=== PATIENT | female | born 1995 | race American Indian/Alaskan Native ===

== ENCOUNTER 2020-09-17 14:27 | Emergency (ER) | payer SELFPAY ==
[2020-09-17 15:26] VITALS: BP 147/89
--- NOTE | 2020-09-17 15:31 | Emergency Department Report ---
- General Chief Complaint: Upper Respiratory Infection Stated Complaint: CHEST PAIN, COUGH, FEELING FAINT, FEVER Time Seen by Provider: 09/17/20 15:27 Source: patient Mode of arrival: Ambulatory Limitations: No Limitations - History of Present Illness Initial Comments: Patient is a 24-year-old female presents emergency room complaints of URI symptoms that began 4 days ago. She has associated cough, chest congestion, chest discomfort with frequent coughing, diarrhea. She states that her children were sick at home with similar symptoms and she gave them amoxicillin and predni sone. She states that she has had a subjective fever. She states that she has been taking Tylenol sinus with some relief. She denies any vomiting, shortness of breath, sore throat, ear pain, abdominal pain, urinary symptoms. Patient denies any past medical history. She states that she has an allergy to amoxicillin and codeine. Patient denies any possibility of and states that she will sign form for x-ray. - Related Data Previous Rx's Medication Instructions Recorded Last Taken Type Albuterol Sulfate [Proventil Hfa] 1 inhalation IH Q4HR PRN #1 09/17/20 Unknown Rx hfa.aer.ad Azithromycin [Zithromax TAB] 250 mg PO QDAY 5 Days #6 tablet 09/17/20 Unknown Rx Prednisone [predniSONE 10 mg 10 mg PO .TAPER #1 tab.ds.pk 09/17/20 Unknown Rx (6-Day Pack, 21 Tabs)] guaiFENesin ER [Mucinex ER] 600 mg PO BID #14 tablet.er 09/17/20 Unknown Rx Allergies Allergy/AdvReac Type Severity Reaction Status Date / Time amoxicillin AdvReac Unknown Verified 09/17/20 15:26 codeine AdvReac Unknown Verified 09/17/20 15:26 ED Review of Systems ROS: Stated complaint: CHEST PAIN, COUGH, FEELING FAINT, FEVER Other details as noted in HPI Comment: All other systems reviewed and negative ED Past Medical Hx - Past Medical History Previous Medical History?: No - Social History Smoking Status: Current Every Day Smoker Substance Use Type: None - Medications Home Medications: Home Medications Medication Instructions Recorded Confirmed Last Taken Type Albuterol Sulfate [Proventil Hfa] 1 inhalation IH Q4HR PRN #1 09/17/20 Unknown Rx hfa.aer.ad Azithromycin [Zithromax TAB] 250 mg PO QDAY 5 Days #6 tablet 09/17/20 Unknown Rx Prednisone [predniSONE 10 mg 10 mg PO .TAPER #1 tab.ds.pk 09/17/20 Unknown Rx (6-Day Pack, 21 Tabs)] guaiFENesin ER [Mucinex ER] 600 mg PO BID #14 tablet.er 09/17/20 Unknown Rx ED Physical Exam - General Limitations: No Limitations General appearance: alert, in no apparent distress - Head Head exam: Present: atraumatic, normocephalic - Eye Eye exam: Present: normal appearance - ENT ENT exam: Present: mucous membranes moist - Respiratory Respiratory exam: Present: normal lung sounds bilaterally, wheezes (mild wheezing bilaterally). Absent: respiratory distress, rales, rhonchi, stridor, chest wall tenderness, accessory muscle use, decreased breath sounds, prolonged expiratory - Cardiovascular Cardiovascular Exam: Present: regular rate, normal rhythm, normal heart sounds. Absent: systolic murmur, diastolic murmur, rubs, gallop - Neurological Exam Neurological exam: Present: alert, oriented X3 - Psychiatric Psychiatric exam: Present: normal affect, normal mood - Skin Skin exam: Present: warm, dry, intact ED Course Vital Signs 09/17/20 15:23 Temperature 98.4 F Pulse Rate 60 Respiratory 18 Rate Blood Pressure 147/89 O2 Sat by Pulse 100 Oximetry ED Medical Decision Making - Radiology Data Radiology results: report reviewed Ordering Physician: JENNIFER EUCEDA Date of Service: 09/17/20 Procedure(s): XR chest routine 2V Accession Number(s): [id number] cc: JENNIFER EUCEDA Fluoro Time In Minutes: CHEST 2 VIEWS INDICATION / CLINICAL INFORMATION: fever, cough, wheezing. COMPARISON: None available. FINDINGS: SUPPORT DEVICES: None. HEART / MEDIASTINUM: No significant abnormality. LUNGS / PLEURA: No significant pulmonary or pleural abnormality. No pneumothorax. ADDITIONAL FINDINGS: No significant additional findings. IMPRESSION: 1. No acute findings. Signer Name: Neto Draper MD Signed: 09/17/2020 4:00 PM Workstation Name: [id number] Transcribed By: Dictated By: NETO DRAPER III Electronically Authenticated By: NETO DRAPER III Signed Date/Time: 09/17/20 1600 DD/ 1559 TD/TT: - Medical Decision Making Patient is a 24-year-old female presents emergency room complaints of URI symptoms that began 4 days ago. She has associated cough, chest congestion, chest discomfort with frequent coughing, diarrhea. She states that her children were sick at home with similar symptoms and she gave them amoxicillin and prednisone. She states that she has had a subjective fever. She states that she has been taking Tylenol sinus with some relief. She denies any vomiting, shortness of breath, sore throat, ear pain, abdominal pain, urinary symptoms. Patient denies any past medical history. She states that she has an allergy to amoxicillin and codeine. Patient denies any possibility of and states that she will sign form for x-ray. VSS. on exam: mild wheezing bilaterally, no rales, no rhonchi, no respiratory distress, no accessory muscle use. CXR: 1. No acute findings. symptoms most consistent with acute bronchitis. pt is presenting during COVID 19 pandemic, discussed COVID 19 with pt, discussed strict return precautions, discussed outpatient testing. advised pt please take medication as prescribed. Please increase your fluid intake over the next several days. May take Tylenol as needed for fever or body aches. Follow-up with a primary care doctor for reexamination. Return to emergency room immediately for any new or worsening symptoms including but not limited to difficulty breathing, shortness of breath, severe chest pain, unable to tolerate by mouth intake, etc. Please self quarantine for 10 days from the onset of your symptoms. Please do not go out in public. If you are around others at home please wear a mask. If you need to cough or sneeze please do so in a napkin and immediately throw it away and immediately wash your hands. Wash your hands frequently. Wipe everything down. Recommend for you to get COVID-19 testing, may have this done at primary care doctor, health department, [facility],.etc. Critical care attestation.: If time is entered above; I have spent that time in minutes in the direct care of this critically ill patient, excluding procedure time. ED Disposition Clinical Impression: Acute bronchitis Qualifiers: Bronchitis organism: unspecified organism Qualified Code(s): J20.9 - Acute bronchitis, unspecified Disposition: DC-01 TO HOME OR SELFCARE Is pt being admited?: No Does the pt Need Aspirin: No Condition: Stable Instructions: Acute Bronchitis, Adult, [id number]-[id number], Acute Bronchitis (ED) Additional Instructions: Please take medication as prescribed. Please increase your fluid intake over the next several days. May take Tylenol as needed for fever or body aches. Follow-up with a primary care doctor for reexamination. Return to emergency r oom immediately for any new or worsening symptoms including but not limited to difficulty breathing, shortness of breath, severe chest pain, unable to tolerate by mouth intake, etc. Please self quarantine for 10 days from the onset of your symptoms. Please do not go out in public. If you are around others at home please wear a mask. If you need to cough or sneeze please do so in a napkin and immediately throw it away and immediately wash your hands. Wash your hands frequently. Wipe everything down. Recommend for you to get COVID-19 testing, may have this done at primary care doctor, health department, [facility],.etc. Prescriptions: guaiFENesin ER [Mucinex ER] 600 mg PO BID #14 tablet.er Prednisone [predniSONE 10 mg (6-Day Pack, 21 Tabs)] 10 mg PO .TAPER #1 tab.ds.pk Albuterol Sulfate [Proventil Hfa] 1 inhalation IH Q4HR PRN #1 hfa.aer.ad PRN Reason: wheezing/shortness of breath Azithromycin [Zithromax TAB] 250 mg PO QDAY 5 Days #6 tablet Referrals: LISA DUDLEY MD [Staff Physician] - 2-3 Days [facility] [Provider Group] - 2-3 Days Forms: Work/School Release Form(ED) Time of Disposition: 16:17 Print Language: FRENCH
--- NOTE | 2020-09-17 16:04 | XRay Report ---
CHEST 2 VIEWS INDICATION / CLINICAL INFORMATION: fever, cough, wheezing. COMPARISON: None available. FINDINGS: SUPPORT DEVICES: None. HEART / MEDIASTINUM: No significant abnormality. LUNGS / PLEURA: No significant pulmonary or pleural abnormality. No pneumothorax. ADDITIONAL FINDINGS: No significant additional findings. IMPRESSION: 1. No acute findings. Signer Name: Neto Draper MD Signed: 09/17/2020 4:00 PM Workstation Name: [id number]
== END 2020-09-17 16:45 | disposition home or self-care (01) ==
LOC: ED 14:27
DX: J20.9 Acute bronchitis, unspecified (principal); F17.200 Nicotine dependence, unspecified, uncomplicated; Z79.899 Other long term (current) drug therapy; F12.10 Cannabis abuse, uncomplicated; Z88.8 Allergy status to other drugs, medicaments and biological substances
CPT/HCPCS: 71046; 99283

== ENCOUNTER 2020-12-29 18:14 | Emergency (ER) | payer MEDICAID ==
[2020-12-29 19:43] VITALS: BP 125/74
--- NOTE | 2020-12-29 20:47 | Emergency Department Report ---
ED General Adult HPI - General Chief complaint: Chest Pain Stated complaint: CHEST PAIN/FEVER/DIFFICULT BREATHING Time Seen by Provider: 12/29/20 20:22 Source: patient Mode of arrival: Ambulatory Limitations: No Limitations - History of Present Illness Initial comments: 25 y/o female pt presents to ED w/ complaints of subjective fever, cough, myalgias, and sore throat for three days. Endorses recent sick contacts. Patient has not received her COVID-19 vaccination series. Patient has been taking Tylenol Sinus with limited relief. No current steroid or antibiotic use. No recent travel. Denies neck stiffness, rash, chest pain, shortness of breath, wheezing, hemoptysis, vomiting, diarrhea. Denies all other complaints at this time. - Related Data Previous Rx's Medication Instructions Recorded Last Taken Type Albuterol Sulfate [Proventil Hfa] 1 inhalation IH Q4HR PRN #1 09/17/20 Unknown Rx hfa.aer.ad Azithromycin [Zithromax TAB] 250 mg PO QDAY 5 Days #6 tablet 09/17/20 Unknown Rx Prednisone [predniSONE 10 mg 10 mg PO .TAPER #1 tab.ds.pk 09/17/20 Unknown Rx (6-Day Pack, 21 Tabs)] guaiFENesin ER [Mucinex ER] 600 mg PO BID #14 tablet.er 09/17/20 Unknown Rx Allergies Allergy/AdvReac Type Severity Reaction Status Date / Time amoxicillin AdvReac Unknown Verified 09/17/20 15:26 codeine AdvReac Unknown Verified 09/17/20 15:26 ED Review of Systems ROS: Stated complaint: CHEST PAIN/FEVER/DIFFICULT BREATHING Other details as noted in HPI Other: GENERAL: Positive for subjective fever. ENT: Positive for sore throat CARDIOVASCULAR: Negative for chest pain, palpitations, lower extremity swelling. PULMONARY: Positive for cough. GASTROINTESTINAL: Negative for abdominal pain, nausea, vomiting, diarrhea, constipation. MUSCULOSKELETAL: Positive for myalgias. NEUROLOGICAL: Negative for headache, seizure, syncope, paresthesias, weakness. INTEGUMENTARY: Negative for erythema, rash, diaphoresis, laceration, ecchymosis. HEMATOLOGICAL: Negative for hemoptysis, hematemesis, hematochezia, hematuria. PSYCHIATRIC: Negative for hallucinations, suicidal ideation, homicidal ideation, anxiety, depression. ED Past Medical Hx - Social History Smoking Status: Current Every Day Smoker Substance Use Type: None - Medications Home Medications: Home Medications Medication Instructions Recorded Confirmed Last Taken Type Albuterol Sulfate [Proventil Hfa] 1 inhalation IH Q4HR PRN #1 09/17/20 Unknown Rx hfa.aer.ad Azithromycin [Zithromax TAB] 250 mg PO QDAY 5 Days #6 tablet 09/17/20 Unknown Rx Prednisone [predniSONE 10 mg 10 mg PO .TAPER #1 tab.ds.pk 09/17/20 Unknown Rx (6-Day Pack, 21 Tabs)] guaiFENesin ER [Mucinex ER] 600 mg PO BID #14 tablet.er 09/17/20 Unknown Rx ED Physical Exam - General Limitations: No Limitations - Other Other exam information: General: Awake and alert. No acute distress. Head: Atraumatic, normocephalic. Eyes: EOMI. Pupils are equal and round. Normal sclera and conjunctiva. ENT: Oral mucosa is moist. Mild pharyngeal erythema without tonsillar swelling or exudate. Uvula is midline and nonedematous. Neck: Supple. No lymphadenopathy. Pulmonary: No respiratory distress. Clear to auscultation bilaterally. Cardiac: Regular rate and rhythm. Pulses are palpable and equal bilaterally. No lower extremity cyanosis or edema. Skin: Warm and dry. No rashes. Abdomen: Soft, non-tender, non-protuberant. No guarding, rigidity, or rebound. Bowel sounds are normal. No organomegaly or masses noted. Back: Normal alignment. No CVA tenderness. Extremities: Symmetrical. Full range of motion intact. Neurological: Alert and oriented, appropriately interactive, no focal deficits. Psych: Cooperative. Appropriate mood and affect. Speech is evenly metered. Thoughts are logically construed. ED Course Vital Signs 12/29/20 19:38 Temperature 98.6 F Pulse Rate 87 Respiratory 16 Rate Blood Pressure 125/74 O2 Sat by Pulse 100 Oximetry ED Medical Decision Making - Medical Decision Making Differential diagnosis including but not limited to: pneumonia, influenza, p ertussis, viral upper respiratory infection On reevaluation, patient remains stable. No hypoxia, no respiratory distress. Chest x-ray without acute process. COVID-19 testing is currently unavailable at this facility. History and exam findings suggestive of viral illness. No clinical indication for further diagnostic work-up on an emergent basis at this time. Patient will be discharged home with instructions for symptomatic treatment and referred to primary care provider for close outpatient follow-up. Patient expressed understanding and is agreeable to plan of care. Disease transmission precautions discussed. Strict return precautions provided. Repeat exam is unremarkable and benign. History, exam, diagnostic testing, and current condition do not suggest worrisome pathology to warrant further testing, continued ED treatment, admission, or surgical evaluation at this point. Given the low probability of a significant medical illness, it would be more likely to result in harm than benefit to perform further testing at this stage. Discussed findings, presumptive diagnosis, need for follow-up and specific signs/symptoms that should prompt immediate return to the emergency department. Instructions were explained in detail to the patient in addition to giving written discharge information. Patient expressed understanding and was given the opportunity to ask questions, all of which were satisfactorily answered prior to discharge home. Critical care attestation.: If time is entered above; I have spent that time in minutes in the direct care of this critically ill patient, excluding procedure time. ED Disposition Clinical Impression: Viral upper respiratory tract infection with cough Disposition: TO HOME OR SELFCARE Is pt being admited?: No Does the pt Need Aspirin: No Condition: Stable Instructions: Viral Respiratory Infection Additional Instructions: Take Tylenol every 4 hours and Motrin every 8 hours as needed for pain/fever. Use mwez-tox-aszrgin cough/cold medicines as needed. Honey is an excellent natural cough suppressant. Salt water gargles and Cepacol lozenges as needed for sore throat. Rest. Drink plenty of fluids. Wash hands frequently to prevent disease transmission. Do not share food or drinks with others. Follow-up with primary care provider this week. Call tomorrow to schedule an appointment. See referral information below. Return to the emergency department immediately for new or worsening. Referrals: LISA DUDLEY MD [Staff Physician] - 3-5 Days [facility] [Provider Group] - 3-5 Days Forms: Work/School Release Form(ED) Time of Disposition: 21:46
--- NOTE | 2020-12-29 21:37 | XRay Report ---
CHEST PA AND LATERAL VIEWS INDICATION: chest pain, SOB. COMPARISON: 09/17/2020 FINDINGS: Support devices: None. Heart: Within normal limits. Lungs/Pleura: No acute pulmonary or pleural findings. IMPRESSION: 1. No acute findings. Signer Name: Dilip Barnett MD Signed: 12/29/2020 9:33 PM Workstation Name: [id number]
--- NOTE | 2020-12-31 09:09 | Electrocardiograph Report ---
[facility] Test Date: 2020-12-29 Test Time: 18:27:57 Pat Name: THAO VILLALOBOS Department: Room: Gender: F Marketing Services Coordinator: NIMA : 1995 Requested By: ISRAEL VÁZQUEZ Order Number: [id number] Reading MD: Aroldo Thorne Measurements Intervals [place] Rate: 99 P: 64 NH: 158 QRS: 51 QRSD: 70 T: 40 QT: 330 QTc: 425 Interpretive Statements Sinus rhythm Right atrial enlargement No previous ECG available for comparison Electronically Signed On 12-31-2020 9:08:51 EDT by Aroldo Thorne
== END 2020-12-29 21:55 | disposition home or self-care (01) ==
LOC: ED 18:14
DX: J06.9 Acute upper respiratory infection, unspecified (principal); R05 Cough; F17.200 Nicotine dependence, unspecified, uncomplicated; Z88.1 Allergy status to other antibiotic agents; Z88.5 Allergy status to narcotic agent
CPT/HCPCS: 71046; 93005; 99283

== ENCOUNTER 2022-01-26 12:48 | Emergency (ER) | payer SELFPAY | END 2022-01-26 16:30 | disposition left against medical advice (07) | LOC: ED 12:48 | DX: R42 Dizziness and giddiness (principal); R50.9 Fever, unspecified; Z53.21 Procedure and treatment not carried out due to patient leaving prior to being seen by health care provider ==